=== PATIENT | female | born 1955 | race Caucasian/White ===

== ENCOUNTER → 2018-11-15 | Outpatient (CLI) | payer BC ==
--- NOTE | 2018-11-16 11:19 | PCVCIMAG ---
APPROVED REPORT Study performed: 11/15/2018 15:35:51 Exam: Stress Echocardiogram Indication: Chest pain Patient Location: Echo lab Stress Nurse: Deanne Arauz RN Room #: 2 Status: routine Ht: 5 ft 3 in HR: 113 bpm BP: 144/90 mmHg Rhythm: NSR Medical History Medical History: Obesity , No history of CAD Cardiac Risk Factors: FHX of CAD Previous Cardiac Procedures: none Pretest Chest Pain Characteristics: No chest pain Procedure The patient underwent an Exercise Stress Test using the Nichole Protocol. Blood pressure, heart rate, and EKG were monitored. An Echocardiogram was performed by pharmaceutical laboratory technician in four stages in quad fashion. At peak stress, four selected images were obtained and placed side by side with resting images for comparison. Stress Test Details Stress Test: Exercise stress testing was performed using a Nichole protocol. HR Resting HR: 90 bpmMax Heart Rate (APMHR): 157 bpm Max HR Achieved: 171 bpmTarget HR (85% APMHR): 133 bpm % of APMHR: 108 Recovery HR: 131 bpm HR response to stress: Normal HR response to stress BP Resting BP: 144/90 mmHg Max BP: 214/100 mmHg Recovery BP: 164/96 mmHg BP response to stress: Normal blood pressure response to stress. ECG Resting ECG: Sinus Rhythm Stress ECG: Sinus Rhythm ST Change: Non-ischemic Arrhythmia: APC's Recovery ECG: Sinus Rhythm Recovery ST Change: Non-ischemic Recovery Arrhythmia: None Clinical Reason for Termination: Maximal effort Stress Symptoms: mild chest pressure-unchanged with exercise Exercise duration: 7 min 49 sec Highest Stage Achieved: Stage 3: 3.4 mph at 14% grade. Exercise capacity: 10.1 METs Overall Exercise Capacity for Age: Average Scale: Active Angina Score: Non-Limiting No complications. Stress ECG Conclusion The patient exercised according to the NICHOLE protocol for 7:49 mins; achieving a work level of 10.1 METS. The resting heart rate of 90 bpm fatimah to a maximum heart rate of 171 bpm. This value represents 108% of the maximal, age-predicted heart rate. The resting blood pressure of 144/90 mmHg, fatimah to a maximum blood pressure of 214/100 mmHg. The exercise test was stopped due to fatigue . Pre-Stress Echo The resting Echocardiogram showed normal left ventricular contractility with an estimated Ejection Fraction of about 55-60%. Normal wall motion in all segments on baseline images. Post-Stress Echo The stress Echocardiogram showed normal left ventricular contractility with an estimated Ejection Fraction of about 65-70%. Normal augmentation of wall motion in all segments on post stress images. Clinical No clinical or ECG evidence for ischemia. Conclusion Clinical Response: Non-ischemic Exercise Capacity: Average Stress ECG Response: Non-ischemic Stress Echo Images: Non-ischemic No clinical, EKG or echocardiographic evidence for ischemia. No echocardiographic evidence for exercise induced ischemia. Normal stress echocardiogram with maximal exercise stress. 1. Low risk study No prior study available for comparison. <Conclusion> No clinical, EKG or echocardiographic evidence for ischemia. No echocardiographic evidence for exercise induced ischemia. Normal stress echocardiogram with maximal exercise stress. 1. Low risk study
== END | disposition home or self-care (01) ==
LOC: PCVCIMAG 15:09
PROVIDERS: ATTEND Family Medicine
DX: R07.9 Chest pain, unspecified (principal)
CPT/HCPCS: 93325; 93351